=== PATIENT | female | born 1985 | race Caucasian/White ===

== ENCOUNTER 2019-11-16 11:30 | Inpatient (IN) | payer MEDICAID, OTHER ==
[~2019-11-16] VITALS: Ht 162.6 cm; Wt 52.0 kg
[2019-11-16 12:15] LABS: BASOPHILS % (AUTO) 0.9 % (0.0-2.0); EOSINOPHILS % (AUTO) 1.2 % (1.0-6.0); HEMATOCRIT 38.8 % (36-46); LYMPHOCYTES # (AUTO) 1.5 K/uL (1.0-4.8); LYMPHOCYTES % (AUTO) 22.8 % (22.0-44.0); MEAN CORPUSCULAR HGB CONC 33.4 G/dL (31.0-37.0); MEAN CORPUSCULAR VOLUME 87 fL (80-100); MONOCYTES # (AUTO) 0.7 K/uL (0.1-1.0); MONOCYTES % (AUTO) 10.1 % (2.0-9.0); NEUTROPHILS # (AUTO) 4.4 K/uL (1.8-7.7); PLATELET COUNT (AUTO) 263 K/uL (150-450); RED BLOOD CELL COUNT(AUTO) 4.46 MIL/uL (4.00-5.20); RED CELL DISTRIBUTION WIDTH 13.1 % (11.5-14.5)
[2019-11-16 12:25] LABS: ANION GAP 5 mmol/L (8-16); CALCIUM, TOTAL 8.3 mg/dL (8.8-10.5); CARBON DIOXIDE 29 mmol/L (22-29); CHLORIDE 106 mmol/L (98-107); CREATININE 0.78 mg/dL (0.60-1.30); GLOMERULAR FILTR. RATE CALC > 60 mL/min (>60); GLUCOSE,RANDOM 92 mg/dL (70-110); POTASSIUM 4.2 mmol/L (3.5-5.1); SODIUM SERUM 140 mmol/L (136-145); UREA NITROGEN, BLOOD 14 mg/dL (7-18)
[2019-11-16 12:31] LABS: ALANINE AMINOTRANSFERASE 31 U/L (12-78); ALBUMIN 3.1 g/dL (3.4-5.0); ALKALINE PHOSPHATASE 83 U/L (46-116); ASPARTATE AMINOTRANSFERASE 26 U/L (15-37); BILIRUBIN,TOTAL 0.6 mg/dL (0.1-1.0); TOTAL PROTEIN, SERUM 6.8 g/dL (6.4-8.2)
[2019-11-16 13:09] LABS: AMPHET/METH SCREEN,URINE POSITIVE (NEGATIVE); BARBITURATE SCREEN, URINE NEGATIVE (NEGATIVE); BENZODIAZEPINES SCREEN,URINE NEGATIVE (NEGATIVE); CANNABINOID SCREEN,URINE NEGATIVE (NEGATIVE); COCAINE SCREEN,URINE NEGATIVE (NEGATIVE); METHADONE SCREEN, URINE NEGATIVE (NEGATIVE); OPIATE SCREEN,URINE NEGATIVE (NEGATIVE)
[2019-11-16 13:10] LABS: PHENCYCLIDINE SCREEN,URINE NEGATIVE (NEGATIVE)
[2019-11-16 14:05] LABS: COVID AG,FIA SOURCE NASOPHARYNGEAL
[2019-11-16] MEDS ORDERED: ZOLPIDEM TARTRATE 10 MG TABLET PO PRN (14:45)
[2019-11-16] MEDS ORDERED: LORazepam 2 MG/ML VIAL ONE (17:44)
[2019-11-16] MEDS ORDERED: HALOPERIDOL LACTATE 5 MG/ML VIAL ONE (17:44)
[2019-11-16] MEDS ORDERED: DiphenhydrAMINE HCL 50 MG/ML VIAL ONE (17:44)
[2019-11-16] MEDS ORDERED: DiphenhydrAMINE HCL 50 MG/ML VIAL IM ONE (17:45)
[2019-11-16] MEDS ORDERED: LORazepam 2 MG/ML VIAL IM ONE (17:45)
[2019-11-16] MEDS ORDERED: HALOPERIDOL LACTATE 5 MG/ML VIAL IM ONE (17:45)
[2019-11-16 18:00] VITALS: BP 146/60
[2019-11-17] MEDS ORDERED: INFLUENZA VIRUS VACCINE QVS 2020-21 (6MO+)/PF 60 MCG/0.5 ML SYRINGE IM ONE (03:00)
[2019-11-17 03:13] VITALS: BP 132/64
[2019-11-17] MEDS ORDERED: DOCUSATE SODIUM 100 MG CAPSULE PO PRN (07:30)
[2019-11-17] MEDS ORDERED: BENZOCAINE/MENTHOL LOZENGE PO PRN (07:30)
[2019-11-17] MEDS ORDERED: ACETAMINOPHEN 325 MG TABLET PO PRN (07:30)
[2019-11-17] MEDS ORDERED: LOPERAMIDE HCL 2 MG CAPSULE PO PRN (07:30)
[2019-11-17] MEDS ORDERED: ALBUTEROL SULFATE HFA 90 MCG/PUFF 8 GM INHALER IH PRN (07:30)
[2019-11-17] MEDS ORDERED: MAG HYDROX/AL HYDROX/SIMETH ES 30 ML SUSPENSION UDCUP PO PRN (07:30)
[2019-11-17] MEDS ORDERED: CloNIDine HCL 0.1 MG TABLET PO PRN (07:30)
[2019-11-17] MEDS ORDERED: ONDANSETRON HCL 4 MG TABLET PO PRN (07:30)
[2019-11-17] MEDS ORDERED: BACITRACIN 28 GM OINTMENT TP PRN (07:30)
[2019-11-17] MEDS ORDERED: IBUPROFEN 600 MG TABLET PO PRN (07:30)
[2019-11-17] MEDS ORDERED: MAGNESIUM HYDROXIDE SUSPENSION 30 ML UDCUP PO PRN (07:30)
[2019-11-17] MEDS ORDERED: PETROLATUM,WHITE 28 GM JELLY TP PRN (07:30)
[2019-11-17] MEDS ORDERED: OMEPRAZOLE 20 MG CAPSULE PO PRN (07:30)
[2019-11-17 08:18] LABS: CHOL/HDL RATIO 2.3 (3.9-5.7)
[2019-11-18 00:10] VITALS: BP 130/93
[2019-11-18 08:19] VITALS: BP 118/69
[2019-11-18] MEDS: LORazepam 2 MG TABLET PO PRN (08:46)
[2019-11-18 18:08] VITALS: BP 100/62
[2019-11-18] MEDS: OLANZapine 5 MG TABLET PO SCH (20:34)
[2019-11-19 02:30] VITALS: BP 102/72
[2019-11-19 08:19] VITALS: BP 118/74
[2019-11-19 16:13] VITALS: BP 103/64
[2019-11-19] MEDS: HALOPERIDOL 5 MG TABLET PO PRN (16:20)
[2019-11-19] MEDS: LORazepam 2 MG TABLET PO PRN (16:20)
[2019-11-19] MEDS: OLANZapine 5 MG TABLET PO SCH (20:38)
[2019-11-20 00:08] VITALS: BP 100/74
[2019-11-20 08:20] VITALS: BP 118/79
[2019-11-20 16:00] VITALS: BP 102/61
[2019-11-20] MEDS: MUPIROCIN CALCIUM 2% 22 GM OINTMENT NASAL SCH (16:57)
[2019-11-20] MEDS: OLANZapine 5 MG TABLET PO SCH (20:41)
[2019-11-21 02:06] VITALS: BP 100/68
[2019-11-21] MEDS: LORazepam 2 MG TABLET PO PRN ×2 (08:25→20:55)
[2019-11-21] MEDS: MUPIROCIN CALCIUM 2% 22 GM OINTMENT NASAL SCH ×2 (09:00→16:58)
[2019-11-21 11:18] VITALS: BP 95/68
[2019-11-21 16:04] VITALS: BP 100/63
[2019-11-21] MEDS: OLANZapine 5 MG TABLET PO SCH (20:55)
[2019-11-22 00:50] VITALS: BP 93/68
[2019-11-22] MEDS: LORazepam 2 MG TABLET PO PRN ×2 (06:51→16:07)
[2019-11-22 08:02] VITALS: BP 114/71
[2019-11-22] MEDS: MUPIROCIN CALCIUM 2% 22 GM OINTMENT NASAL SCH ×2 (08:21→16:07)
[2019-11-22 16:24] VITALS: BP 103/73
[2019-11-22] MEDS: OLANZapine 10 MG TABLET PO SCH (20:01)
[2019-11-22] MEDS ORDERED: OLANZapine 7.5 MG TABLET PO SCH (21:00)
[2019-11-23 01:29] VITALS: BP 120/85
[2019-11-23 09:12] VITALS: BP 98/64
[2019-11-23] MEDS: MUPIROCIN CALCIUM 2% 22 GM OINTMENT NASAL SCH ×2 (09:19→15:52)
[2019-11-23] MEDS: LORazepam 2 MG TABLET PO PRN (15:58)
[2019-11-23 16:05] VITALS: BP 105/64
[2019-11-23] MEDS: MULTIVITAMINS, THERAPEUTIC TABLET PO SCH (17:22)
[2019-11-23] MEDS: OLANZapine 10 MG TABLET PO SCH (19:53)
[2019-11-24 01:16] VITALS: BP 102/68
[2019-11-24 08:12] VITALS: BP 106/66
[2019-11-24] MEDS: MULTIVITAMINS, THERAPEUTIC TABLET PO SCH (08:13)
[2019-11-24] MEDS: MUPIROCIN CALCIUM 2% 22 GM OINTMENT NASAL SCH ×2 (08:13→16:46)
[2019-11-24] MEDS ORDERED: LORazepam 2 MG/ML VIAL ONE (13:04)
[2019-11-24] MEDS ORDERED: HALOPERIDOL LACTATE 5 MG/ML VIAL ONE (13:04)
[2019-11-24] MEDS ORDERED: DiphenhydrAMINE HCL 50 MG/ML VIAL ONE (13:05)
[2019-11-24] MEDS ORDERED: HALOPERIDOL LACTATE 5 MG/ML VIAL IM ONE (13:15)
[2019-11-24] MEDS ORDERED: LORazepam 2 MG/ML VIAL IM ONE (13:15)
[2019-11-24] MEDS ORDERED: DiphenhydrAMINE HCL 50 MG/ML VIAL IM ONE (13:15)
[2019-11-24 17:15] VITALS: BP 100/65
[2019-11-24 18:19] VITALS: BP 100/65
[2019-11-24] MEDS: HALOPERIDOL 10 MG TABLET PO SCH (20:04)
[2019-11-24] MEDS: OLANZapine 10 MG TABLET PO SCH (20:04)
[2019-11-25 01:10] VITALS: BP 102/68
[2019-11-25] MEDS: LORazepam 2 MG TABLET PO PRN ×2 (08:00→15:59)
[2019-11-25] MEDS: HALOPERIDOL 5 MG TABLET PO PRN ×2 (08:00→15:59)
[2019-11-25] MEDS: MULTIVITAMINS, THERAPEUTIC TABLET PO SCH (08:00)
[2019-11-25] MEDS: MUPIROCIN CALCIUM 2% 22 GM OINTMENT NASAL SCH ×2 (08:01→15:53)
[2019-11-25 15:13] VITALS: BP 106/69
[2019-11-25 16:13] VITALS: BP 112/71
[2019-11-25] MEDS: HALOPERIDOL 10 MG TABLET PO SCH (20:08)
[2019-11-25] MEDS: OLANZapine 10 MG TABLET PO SCH (20:08)
[2019-11-26 00:31] VITALS: BP 106/76
[2019-11-26] MEDS: MULTIVITAMINS, THERAPEUTIC TABLET PO SCH (07:50)
[2019-11-26] MEDS: HALOPERIDOL 5 MG TABLET PO PRN ×2 (07:50→16:22)
[2019-11-26] MEDS: LORazepam 2 MG TABLET PO PRN (07:50)
[2019-11-26 08:03] VITALS: BP 110/64
[2019-11-26] MEDS: MUPIROCIN CALCIUM 2% 22 GM OINTMENT NASAL SCH ×2 (11:06→16:05)
[2019-11-26 18:30] VITALS: BP 115/74
[2019-11-26] MEDS: OLANZapine 10 MG TABLET PO SCH (20:02)
[2019-11-26] MEDS: HALOPERIDOL 10 MG TABLET PO SCH (20:25)
[2019-11-27 01:22] VITALS: BP 106/72
[2019-11-27 08:02] VITALS: BP 111/69
[2019-11-27] MEDS: MUPIROCIN CALCIUM 2% 22 GM OINTMENT NASAL SCH ×2 (08:36→16:34)
[2019-11-27] MEDS: MULTIVITAMINS, THERAPEUTIC TABLET PO SCH (08:36)
[2019-11-27 16:04] VITALS: BP 91/71
[2019-11-27] MEDS: OLANZapine 10 MG TABLET PO SCH (20:01)
[2019-11-27] MEDS: HALOPERIDOL 10 MG TABLET PO SCH (20:01)
[2019-11-28 04:43] VITALS: BP 101/76
[2019-11-28] MEDS: MULTIVITAMINS, THERAPEUTIC TABLET PO SCH (08:29)
[2019-11-28] MEDS: MUPIROCIN CALCIUM 2% 22 GM OINTMENT NASAL SCH (08:29)
[2019-11-28 16:02] VITALS: BP 103/58
[2019-11-28] MEDS: OLANZapine 10 MG TABLET PO SCH (20:05)
[2019-11-28] MEDS: HALOPERIDOL 10 MG TABLET PO SCH (20:05)
[2019-11-29 00:50] VITALS: BP 100/63
[2019-11-29] MEDS: MULTIVITAMINS, THERAPEUTIC TABLET PO SCH (08:15)
[2019-11-29 16:00] VITALS: BP 107/62
[2019-11-29] MEDS: OLANZapine 10 MG TABLET PO SCH (20:08)
[2019-11-29] MEDS: HALOPERIDOL 10 MG TABLET PO SCH (20:09)
[2019-11-30 01:16] VITALS: BP 100/73
[2019-11-30 08:15] VITALS: BP 109/74
[2019-11-30] MEDS: MULTIVITAMINS, THERAPEUTIC TABLET PO SCH (08:16)
[2019-11-30 16:52] VITALS: BP 112/68
[2019-11-30] MEDS: OLANZapine 10 MG TABLET PO SCH (20:07)
[2019-11-30] MEDS: HALOPERIDOL 10 MG TABLET PO SCH (20:09)
[2019-12-01 01:27] VITALS: BP 104/70
[2019-12-01 08:22] VITALS: BP 122/84
[2019-12-01] MEDS: MULTIVITAMINS, THERAPEUTIC TABLET PO SCH (08:25)
[2019-12-01 16:14] VITALS: BP 123/75
[2019-12-01] MEDS: HALOPERIDOL 10 MG TABLET PO SCH (20:11)
[2019-12-01] MEDS: OLANZapine 10 MG TABLET PO SCH (20:11)
[2019-12-02 05:17] VITALS: BP 113/84
[2019-12-02] MEDS: HALOPERIDOL 5 MG TABLET PO PRN (08:21)
[2019-12-02] MEDS: MULTIVITAMINS, THERAPEUTIC TABLET PO SCH (08:21)
[2019-12-02 09:16] VITALS: BP 110/63
[2019-12-02 16:06] VITALS: BP 106/68
[2019-12-02] MEDS: HALOPERIDOL 10 MG TABLET PO SCH (20:05)
[2019-12-02] MEDS: OLANZapine 10 MG TABLET PO SCH (20:06)
[2019-12-03 01:36] VITALS: BP 102/76
[2019-12-03 08:17] VITALS: BP 118/59
[2019-12-03] MEDS: MULTIVITAMINS, THERAPEUTIC TABLET PO SCH (10:39)
[2019-12-03 17:21] VITALS: BP 101/73
[2019-12-03] MEDS: HALOPERIDOL 10 MG TABLET PO SCH (20:26)
[2019-12-03] MEDS: OLANZapine 10 MG TABLET PO SCH (20:26)
[2019-12-04 00:50] VITALS: BP 100/74
[2019-12-04 08:28] VITALS: BP 100/62
[2019-12-04] MEDS: MULTIVITAMINS, THERAPEUTIC TABLET PO SCH (10:21)
[2019-12-04 16:03] VITALS: BP 122/85
[2019-12-04] MEDS: HALOPERIDOL 10 MG TABLET PO SCH (20:22)
[2019-12-04] MEDS: OLANZapine 10 MG TABLET PO SCH (20:22)
[2019-12-05 01:10] VITALS: BP 117/78
[2019-12-05 08:09] VITALS: BP 109/64
[2019-12-05] MEDS: MULTIVITAMINS, THERAPEUTIC TABLET PO SCH (08:17)
[2019-12-05 16:03] VITALS: BP 116/74
[2019-12-05] MEDS: OLANZapine 10 MG TABLET PO SCH (20:41)
[2019-12-05] MEDS: HALOPERIDOL 10 MG TABLET PO SCH (20:41)
[2019-12-06 01:04] VITALS: BP 120/72
[2019-12-06 08:10] VITALS: BP 118/66
[2019-12-06] MEDS: MULTIVITAMINS, THERAPEUTIC TABLET PO SCH (08:52)
[2019-12-06] MEDS ORDERED: HALO10 PO (10:55)
[2019-12-06] MEDS ORDERED: OLAN10TA3 PO (10:56)
== END 2019-12-06 12:15 | disposition home or self-care (01) | DRG 750 ==
LOC: EMS 11:31 → B2S 14:32 → B3A 19:57
PROVIDERS: ADMIT Psychiatry & Neurology Psychiatry; ATTEND Psychiatry & Neurology Psychiatry
DX: F20.0 Paranoid schizophrenia (principal); F94.0 Selective mutism; F41.9 Anxiety disorder, unspecified; G47.00 Insomnia, unspecified; K59.00 Constipation, unspecified; F19.10 Other psychoactive substance abuse, uncomplicated; F17.210 Nicotine dependence, cigarettes, uncomplicated; Z20.828 Contact with and (suspected) exposure to other viral communicable diseases; Z59.0 Homelessness; Z28.21 Immunization not carried out because of patient refusal; Z79.899 Other long term (current) drug therapy
CPT/HCPCS: 87081; 87426; G0480; J1200; J1630; J2060